=== PATIENT | male | born 1955 | race Caucasian/White ===

== ENCOUNTER 2020-04-17 12:48 | Outpatient (CLI) | payer MEDICARE, OTHER, SELFPAY ==
--- NOTE | ~2020-04-17 | MR_ITS ---
EXAMINATION: MR brain/brain stem wo con DATE: 04/17/2020 13:58 INDICATION: Dizziness and giddiness. TECHNIQUE: Magnetic resonance imaging (MRI) of the brain and brainstem was performed without intraven ous contrast. Sequences included sagittal and axial T1-weighted SE, axial diffusion-weighted FS SE, a xial T2*-weighted GRE, axial T2-weighted FLAIR, and axial T2-weighted FSE. Apparent diffusion coeffic ient (ADC) maps were created. COMPARISON: None. FINDINGS: There are no areas of restricted diffusion to suggest acute infarction. No intracranial hemorrhage or abnormal intracranial mass lesion. There are scattered areas of nonspecific increased T2-weighted si gnal intensity in the cerebral white matter, predominantly involving the deep and periventricular whi te matter which is within normal limits for age. There are no intraparenchymal signal abnormalities s een on the other pulse sequences. The ventricles are symmetric and normal in size. There are no abnor mal extra-axial fluid collections. Flow voids are seen in the cerebral arteries on the T2-weighted se quences consistent with their expected patency. Mild mucoperiosteal thickening throughout the right f rontal, bilateral ethmoid and maxillary sinuses. Visualized orbits and soft tissues are unremarkable. IMPRESSION: 1. Mild scattered nonspecific foci of white matter T2 hyperintensity which is within normal limits fo r age and likely sequela of chronic small vessel ischemic disease. Reviewed, dictated and finalized at location A. WAREHOUSE DEVELOPER IMPRESSION: 1. Mild scattered nonspecific foci of white matter T2 hyperintensity which is w ithin normal limits for age and likely sequela of chronic small vessel ischemic disease.
--- NOTE | 2020-04-17 13:25 | ECHO_ITS ---
Patient Info Name: Jamarcus Whitfield Age: 64 years : 1955 Gender: Male Ht: 75 in Wt: 245 lbs BSA: 2.45 m2 HR: 109 bpm BP: 142 / 89 mmHg Technical Quality: Good Exam Date: 04/17/2020 2:04 PM Exam Location: [facility] Patient Status: Outpatient Admit Date: 04/17/2020 Staff Ordering Physician: France Heredia NP Sealer Dry Cell: Radha Woody RDCS Attending Provider: France Heredia NP Referring Physician: Giovanna IVEY; Exam Type: CA echo doppler color flow Study Info Indications - LBBB UNSPECIFIED Complete two-dimensional, color flow and Doppler transthoracic echocardiogram is performed. Summary 1. Complete two-dimensional, color flow and Doppler transthoracic echocardiogram is performed. 2. Left ventricular chamber dimension is moderately enlarged. 3. Left ventricular systolic function is severely reduced, estimated at 30-35%. 4. There is mildly increased left ventricular wall thickness. 5. Left ventricular septal wall motion is abnormal with septal motion related to bundle branch block. 6. The left ventricular diastolic function is normal. 7. E/e' 9 is minimally elevated. 8. Global longitudinal strain is abnormal at -5.9%. 9. Left atrial chamber dimension is mildly enlarged. 10. There is mild mitral valve regurgitation. 11. There is trace tricuspid valve regurgitation. 12. No pulmonary hypertension, estimated pulmonary arterial systolic pressure is 22 mmHg. 13. The aortic root size at the sinus of Valsalva is borderline dilated at 4.1 cm. Left Ventricle E/e' 9 is minimally elevated. Global longitudinal strain is abnormal at -5.9%. Left ventricular chamber dimension is moderately enlarged. Left ventricular systolic function is severely reduced, estimated at 30-35%. There is mildly increased left ventricular wall thickness. Left ventricular septal wall motion is abnormal with septal motion related to bundle branch block. The left ventricular diastolic function is normal. Right Ventricle Right ventricular chamber dimension is normal. Right ventricular systolic function is normal. Left Atria Left atrial chamber dimension is mildly enlarged. Right Atria Right atrial chamber dimension is normal. Aortic Valve The aortic valve is trileaflet. There is no aortic valve stenosis. There is no aortic valve regurgitation. Pulmonic Valve There is no pulmonic regurgitation. Mitral Valve There is no mitral valve stenosis. There is mild mitral valve regurgitation. Tricuspid Valve There is trace tricuspid valve regurgitation. No pulmonary hypertension, estimated pulmonary arterial systolic pressure is 22 mmHg. Pericardium/Pleural There is no pericardial effusion. Inferior Vena Cava Normal inferior vena cava with >50% collapse upon inspiration consistent with normal right atrial pressure, 5 mmHg. Aorta The aortic root size at the sinus of Valsalva is borderline dilated at 4.1 cm. Left Ventricular Outflow Tract Name Value Normal LVOT 2D LVOT Diameter 2.4 cm LVOT Doppler LVOT Peak Gradient 4 mmHg LVOT Mean Gradient 2 mmHg
== END 2020-04-17 12:49 | disposition home or self-care (01) ==
PROVIDERS: PCP Internal Medicine; Visit Provider Nurse Practitioner
DX: I44.7 Left bundle-branch block, unspecified (principal); R42 Dizziness and giddiness
CPT/HCPCS: 70551; 93306

== ENCOUNTER 2020-04-23 11:23 | Outpatient (CLI) | payer MEDICARE, OTHER, SELFPAY ==
--- NOTE | ~2020-04-23 | XR_ITS ---
XR chest 2V DATE: 04/23/2020 11:52 INDICATION: Cough for one month TECHNIQUE: 2 views, PA and lateral projections COMPARISON: None FINDINGS: Normal heart size. No hilar or mediastinal enlargement. No pulmonary infiltrate or consolidation, pleural effusion or pulmonary vascular congestion or pneumo thorax is detected. IMPRESSION: No active cardiopulmonary disease Reviewed, dictated and finalized at location B. MACY OPERATIONS SPECIALIST
== END 2020-04-23 11:24 | disposition home or self-care (01) ==
PROVIDERS: PCP Internal Medicine; Visit Provider Nurse Practitioner
DX: R05 Cough (principal)
CPT/HCPCS: 71046

== ENCOUNTER 2020-04-29 01:26 | Outpatient (CLI) | payer MEDICARE, OTHER, SELFPAY ==
[2020-04-29 19:22] LABS: SARS-CoV-2 RNA PCR Negative
== END 2020-04-29 01:27 | disposition home or self-care (01) ==
LOC: ANHCOVIDDT 01:27
PROVIDERS: PCP Internal Medicine; Visit Provider Specialist
DX: Z01.812 Encounter for preprocedural laboratory examination (principal); Z20.822 Contact with and (suspected) exposure to COVID-19
CPT/HCPCS: C9803; U0003; U0005

== ENCOUNTER 2020-05-09 00:23 | Outpatient (CLI) | payer MEDICARE, OTHER, SELFPAY ==
[2020-05-09 17:38] LABS: SARS-CoV-2 RNA PCR Negative
== END 2020-05-09 00:24 | disposition home or self-care (01) ==
LOC: ANHCOVIDDT 00:23
PROVIDERS: PCP Internal Medicine; Visit Provider Specialist
DX: Z01.812 Encounter for preprocedural laboratory examination (principal); Z20.822 Contact with and (suspected) exposure to COVID-19
CPT/HCPCS: C9803; U0003; U0005

== ENCOUNTER 2020-05-12 01:29 | Day surgery (SDC) | payer MEDICARE, OTHER, SELFPAY ==
[2020-05-12] VITALS (8 sets, daily range): BP systolic 127–143; BP diastolic 84–90; PULSE 80–112; RESP 14–21; TEMP 36.5–37; O2SAT 92–98; BMI 30.3
[2020-05-12 07:41] LABS: Basophils Percent Auto 0.2 % (0.2-1.2); Hematocrit 46.2 % (42.0-52.0); Hemoglobin 15.9 g/dL (14.0-18.0); Immature Granulocyte Absolute 0.07 K/mm3 (0.00-0.031); Immature Granulocyte Percent A 0.5 % (0-0.5); Lymphocytes Absolute Auto 1.07 K/mm3 (0.9-3.2); Lymphocytes Percent Auto 7.1 % (18.3-44.2); Mean Corpuscular HGB Conc 34.4 g/dl (32-36); Mean Corpuscular Hemoglobin 29.7 pg (26-34); Mean Corpuscular Volume 86.2 fl (80-100); Mean Platelet Volume 9.8 fl (7.4-10.4); Monocytes Absolute Auto 0.1 K/mm3 (0.1-0.6); Monocytes Percent Auto 0.9 % (2.6-8.5); Neutrophils Absolute Auto 13.8 K/mm3 (1.3-6.7); Neutrophils Percent Auto 91.3 % (45.5-73.1); Platelet Count Result 377 k/mm3 (150-375); Red Blood Count 5.36 M/mm3 (4.6-6.20); Red Cell Distribution Width 12.8 % (11.5-14.5); White Blood Count 15.1 K/mm3 (4.5-10.0)
[2020-05-12 07:55] LABS: Anion Gap 12 mmol/L (8-16); Blood Urea Nitrogen 20 mg/dL (9-20); Calcium 9.7 mg/dL (8.4-10.2); Carbon Dioxide 23 mmol/L (22-30); Chloride 107 mmol/L (98-107); Estimated Glomerular Filt Rate > 60; Glucose 168 mg/dL (75-110); INR 0.9; Potassium 4.3 mmol/L (3.4-5.0); Prothrombin Time 13.2 Seconds (11.1-14.7); Sodium 142 mmol/L (137-145)
--- NOTE | 2020-05-12 08:43 | WPDMODSED ---
Moderate Sedation Note-Pt Data Patient Data Diagnosis: Left bundle-branch block left ventricular systolic dysfunction Present Complaint: this is a 64-year-old patient who has been noticing symptoms of exertional intolerance for approximately 1-2 years. Evaluation has demonstrated evidence of a left bundle-branch block as well as a reduced ejection fraction noted on echo. For this reason angiography has been recommended. He is not reporting anginal-type chest pain. the patient is allergic to contrast and has been pre treated with steroids and Benadryl. Procedure to be performed/Plan: left heart catheterization Allergies Allergy/AdvReac Type Severity Reaction Status Date / Time meperidine Allergy Severe Anaphylactic Verified 05/12/20 07:35 Shock Sulfa (Sulfonamide Allergy Severe Anaphylactic Verified 05/12/20 07:37 Antibiotics) Shock sulfamethizole Allergy Severe Anaphylactic Verified 05/12/20 07:37 Shock sulfite Allergy Severe Anaphylactic Verified 05/12/20 07:37 Shock trimethoprim Allergy Severe Abdominal Verified 05/12/20 07:37 Pain Home Medications Medication Instructions Recorded Confirmed Type cetirizine 10 mg tablet 5 mg PO DAILY PRN 03/14/20 05/12/20 History multivitamin 1 tablet PO DAILY 03/14/20 05/12/20 History nabumetone 500 mg tablet 500 mg PO BID PRN 03/14/20 05/12/20 History lisinopril 40 mg tablet 40 mg PO DAILY #90 tablet 03/27/20 05/12/20 Rx meclizine 12.5 mg tablet 12.5 mg PO TID PRN #30 tablet 03/27/20 05/12/20 Rx diazepam 5 mg tablet 5 mg PO BID PRN #20 tablet 03/28/20 05/12/20 Rx prochlorperazine maleate 5 mg 5 mg PO Q8H PRN #20 tablet 03/28/20 05/12/20 Rx tablet amlodipine 10 mg tablet 10 mg PO DAILY #90 tablet 04/02/20 05/12/20 Rx finasteride 5 mg tablet 5 mg PO DAILY #90 tablet 04/02/20 05/12/20 Rx aspirin 81 mg tablet,delayed 81 mg PO DAILY 04/24/20 05/12/20 History release carvedilol 3.125 mg tablet 3.125 mg PO Q12H #60 tablet 04/24/20 05/12/20 Rx rosuvastatin 20 mg tablet 20 mg PO DAILY #30 tablet 04/25/20 05/12/20 Rx Current Medications: Active Medications Sodium Chloride (Normal Saline Iv) 500 mls @ 100 mls/hr IV CONT .Q5H [facility] Sedation/Anesthesia: No previous sedation/anesthesia problems (including family history). 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 Torn meniscus 1998 Family History Family History (Updated 03/12/20 @ 16:39 by Ivonne Lira [facility]) Father Family history of lymphoma Diabetes mellitus Hypertension Family history of coronary artery disease Gout Mother Hypertension Family history of coronary artery disease Breast cancer Arthritis Social History Social History Smoking status: Former smoker Smoking end date: 04/18/94 Alcohol intake: never Mod Sed Physical Exam Physical Exam Pre Procedural Exam: Normal: Appearance, Neck, Throat, Airway, Lungs, Heart Size, Heart Rate, Heart Rhythm, Neuro Exam and Extremities Hours since solid foods: 12 Hours since liquid intake: 12 Internal Medicine - PN: Obj Da Vital Signs Vital Signs: Vital Signs - 24 hr 05/12/20 07:48 Temperature 36.5 C Pulse Rate 108 H Respiratory Rate 18 Blood Pressure 141/84 H Pulse Oximetry 98 Meds/Results Medications: Active Medications Generic Name Dose Route Start Last Admin Trade Name Freq PRN Reason Stop Dose Admin Sodium Chloride 500 mls @ 100 mls/hr 05/12/20 07:20 Normal Saline Iv IV CONT .Q5H [facility] Labs CBC & Chem 7: 05/12/20 07:32 05/12/20 07:32 Labs: Laboratory Results - last 24 hr 05/12/20 05/12/20 05/12/20 07:32 07:32 07:32 WBC 15.1 H RBC 5.36 Hgb 15.9 Hct 46.2 MCV 86.2 MCH 29.7 MCHC 34.4 RDW 12.8 Plt Count 377 H MPV 9.8 Immature
--- NOTE | 2020-05-12 09:21 | P.PCNCC_ITS ---
Cardiac Cath Procedure Note Date of procedure:: 05/12/20 Performing physician:: Camilo Ha MD Indication:: Left bundle-branch block left ventricular systolic dysfunction Brief clinical history:: 64-year-old man reporting symptoms of exertional intolerance occasional exertional chest pain. Was found to have a left bundle branch block and LV systolic dysfunction by echo. Procedure Procedure performed:: Left heart catheterization Angio-Seal to right femoral artery Sedation/Medication given:: fentanyl 50 mg Versed 2 mg case start time 9:01 a.m. case end time 9:19 a.m. sedation provided by Lizabeth Cr RN, trained observer Access site:: right femoral artery Estimated blood loss:: 10-15 cc Procedure note:: patient was brought to the cardiac catheterization lab in the postabsorptive state the right femoral triangle was prepared and draped in the usual fashion. Anesthesia was provided with 1% lidocaine infiltrated locally. Using modified Seldinger technique a 5 [place] sheath was placed into the femoral artery after this left heart catheterization took place I used a 5 [place] angled pigtail catheter to document left-sided hemodynamics and injected LV g in the ÁLVAREZ projection. After this I used a standard 5 [place] FL4 catheter to inject the left coronary artery and a 5 [place] JR4 catheter to engage inject the right coronary artery. The cine angiograms were then reviewed and the case was terminated. An angiogram was then of the femoral artery through the sheath after which an Angio-Seal device was deployed with a good hemostatic result. Procedure was well tolerated he left the cardiac catheterization lab with no evidence of a groin hematoma. Findings:: Hemodynamics: Central aortic pressure is 126/70 left ventricle 126/0 end-diastolic of 11 there is no systolic gradient on pullback across the aortic valve. Left ventricle: The LV is mildly enlarged the infero posterior segments are markedly hypodynamic the remainder of the LV is moderately hypodynamic the global ejection fraction is visually estimated to be about 30-35%. Opacification of the left ventricle during this LV g was suboptimal. The left main coronary artery is short but nicely patent the left anterior descending is a moderate caliber artery appears to have about 70% stenosis at its ostium. Then there is a 90% stenosis in the midportion of the LAD. There was SAMIR 3 flow in the vessel. The circumflex is a moderate caliber artery giving rise to the marginal branc hes after the largest marginal branch the trunk of the circumflex has about 70- 80% stenosis prior to the largest posterior lateral branch. There is distal collateral filling from the distal circumflex to the RCA. Right coronary artery is dominant to the posterior circulation and has mild disease proximally is 100% occluded in the 2nd portion with antegrade bridging collaterals providing slow filling distal to this. The RV acute marginal branches without significant disease prior to the occlusion. Conclusion:: 1. Three-vessel coronary artery disease with 100% occlusion of the mid RCA which receives both right to right and [id number] collateral filling. Moderate stenosis of the LAD ostium and high-grade stenosis of the mid LAD. Moderate stenosis of the circumflex trunk after the major OM branch. 2. Left ventricular systolic dysfunction ejection fraction visually estimated to be 30-35% similar to what was noted echocardiographically. 3. Successful Angio-Seal to right femoral artery Camilo Ha MD [facility]
--- NOTE | 2020-05-12 13:28 | SUR.PHASEII ---
Addendum entered by Elodia Ware RN 05/12/20 13:32: Patient escorted to vehicle by staff at discharge, where he was picked up by his friend. Original Note: Patient discharged following LHC. Education provided on post-care including reportable s/s, angiogseal,groin management and wound care, moderate sedation. Patient states he has a follow-up appointment already scheduled with Dr. Cortes for next week at time of discharge. At discharge, dressing C/D/I, patient denies pain, palpable distal pulse, VSS. Dr. Ha notified of patient's elevated HR at time of DC- no further orders obtained, patient asymptomatic. PIV removed. Patient verbalizes understanding of information provided.
== END 2020-05-12 13:33 | disposition home or self-care (01) ==
PROVIDERS: PCP Internal Medicine; Visit Provider Specialist
PROC: 4A023N7 Measurement of Cardiac Sampling and Pressure, Left Heart, Percutaneous Approach (ICD-10-PCS; CPT 93452; principal; 2020-05-12 08:30)
DX: I25.10 Atherosclerotic heart disease of native coronary artery without angina pectoris (principal); R93.1 Abnormal findings on diagnostic imaging of heart and coronary circulation; I44.7 Left bundle-branch block, unspecified; R07.89 Other chest pain; E78.5 Hyperlipidemia, unspecified; I10 Essential (primary) hypertension; M10.9 Gout, unspecified; N40.0 Benign prostatic hyperplasia without lower urinary tract symptoms; Z87.891 Personal history of nicotine dependence
CPT/HCPCS: 36415; 80048; 85025; 85610; 93458; C1760; C1887; C1894; G0269; J1644; J2250; J3010; J7040

== ENCOUNTER 2020-09-24 11:02 | Outpatient (CLI) | payer MEDICARE, OTHER, SELFPAY ==
--- NOTE | ~2020-09-24 | XR_ITS ---
XR lumbar spine min 4V 09/24/2020 11:31 Indication: Low back pain Procedure: 5 views lumbar spine Comparison: No prior studies for comparison. Findings: There is mild levocurvature. Vertebral body heights are maintained. There is disc narrowing at L2-3 through L5-S1. There is mild facet hypertrophy at L4-5 and L5-S1. There is atherosclerosis o f the aorta. Pedicles intact. Sacral foramen are symmetric. Impression: 1: Mild-moderate lumbar spondylosis. Reviewed, dictated and finalized at location B. Impression: 1: Mild-moderate lumbar spondylosis.
== END 2020-09-24 11:03 | disposition home or self-care (01) ==
PROVIDERS: PCP Internal Medicine; Visit Provider Nurse Practitioner
DX: M47.896 Other spondylosis, lumbar region (principal)
CPT/HCPCS: 72110

== ENCOUNTER 2020-10-21 12:26 | Outpatient (CLI) | payer MEDICARE, OTHER, SELFPAY ==
--- NOTE | 2020-10-21 12:48 | ECHO_ITS ---
Patient Info Name: Jamarcus Whitfield Age: 65 years : 1955 Gender: Male Ht: 75 in Wt: 219 lbs BSA: 2.31 m2 HR: 94 bpm BP: 178 / 106 mmHg Exam Date: 10/21/2020 1:08 PM Exam Location: [facility] Patient Status: Outpatient Admit Date: 10/21/2020 Staff Ordering Physician: Juan A Cortes DO Clerical Warehouseman: Glenny Cali RDCS Attending Provider: Juan A Cortes DO Exam Type: CA echo doppler color flow Study Info Indications I50.20 - Unspecified systolic (congestive) heart failure Complete two-dimensional, color flow and Doppler transthoracic echocardiogram is performed. Summary 1. Complete two-dimensional, color flow and Doppler transthoracic echocardiogram is performed. 2. Left ventricular chamber dimension is severely enlarged. 3. Left ventricular systolic function is severely reduced, estimated at 20-25%. 4. Left ventricular septal wall motion is abnormal with septal motion related to bundle branch block. 5. The left ventricular diastolic function is grade I diastolic dysfunction. 6. E/e' 7 is not elevated. 7. Left atrial chamber dimension is mildly enlarged. 8. Right atrial chamber dimension is mildly enlarged. 9. There is mild aortic valve regurgitation. 10. There is mild mitral valve regurgitation. 11. No pulmonary hypertension, estimated pulmonary arterial systolic pressure is 36 mmHg. 12. The aortic root size at the sinus of Valsalva is moderately dilated at 4.4 cm. Left Ventricle E/e' 7 is not elevated. Left ventricular chamber dimension is severely enlarged. Left ventricular systolic function is severely reduced, estimated at 20-25%. Left ventricular septal wall motion is abnormal with septal motion related to bundle branch block. The left ventricular diastolic function is grade I diastolic dysfunction. Right Ventricle Right ventricular chamber dimension is normal. Right ventricular systolic function is normal. Left Atria Left atrial chamber dimension is mildly enlarged. Right Atria Right atrial chamber dimension is mildly enlarged. Aortic Valve The aortic valve is trileaflet. There is no aortic valve stenosis. There is mild aortic valve regurgitation. Pulmonic Valve There is no pulmonic regurgitation. Mitral Valve There is no mitral valve stenosis. There is mild mitral valve regurgitation. Tricuspid Valve There is no tricuspid valve regurgitation. No pulmonary hypertension, estimated pulmonary arterial systolic pressure is 36 mmHg. Pericardium/Pleural There is no pericardial effusion. Inferior Vena Cava Normal inferior vena cava with >50% collapse upon inspiration consistent with normal right atrial pressure, 5 mmHg. Aorta The aortic root size at the sinus of Valsalva is moderately dilated at 4.4 cm. Left Ventricular Outflow Tract Name Value Normal LVOT 2D LVOT Diameter 2.3 cm LVOT Doppler LVOT Peak Gradient 3 mmHg LVOT Mean Gradient 1 mmHg LVOT VTI 15 cm LVOT VTI/AV VTI Ratio 0.6 LVOT Stroke Volume 62 ml
== END 2020-10-21 12:27 | disposition home or self-care (01) ==
PROVIDERS: PCP Internal Medicine; Visit Provider Internal Medicine Cardiovascular Disease
DX: I50.20 Unspecified systolic (congestive) heart failure (principal); I34.0 Nonrheumatic mitral (valve) insufficiency; I35.1 Nonrheumatic aortic (valve) insufficiency
CPT/HCPCS: 93306

== ENCOUNTER → 2021-01-17 00:39 | Outpatient (CLI) | payer MEDICARE, OTHER, SELFPAY ==
[2021-01-17 19:34] LABS: SARS-CoV-2 RNA PCR Negative
== END ==
PROVIDERS: PCP Internal Medicine; Visit Provider Clinical Nurse Specialist
DX: J32.9 Chronic sinusitis, unspecified (principal); Z20.822 Contact with and (suspected) exposure to COVID-19
CPT/HCPCS: C9803; U0003; U0005

== ENCOUNTER → 2021-05-12 02:59 | Outpatient (CLI) | payer MEDICARE, SELFPAY ==
[2021-05-12 15:54] LABS: Influenza A QL RT-PCR Negative (Negative); Influenza B QL RT-PCR Negative (Negative); SARS-CoV-2 RNA PCR Negative
== END ==
PROVIDERS: PCP Internal Medicine; Visit Provider Nurse Practitioner
DX: R05.9 Cough, unspecified (principal); Z20.822 Contact with and (suspected) exposure to COVID-19
CPT/HCPCS: 87502; C9803; U0003; U0005

== ENCOUNTER → 2022-06-09 14:01 | Outpatient (CLI) | payer MEDICARE, SELFPAY ==
--- NOTE | ~2022-06-09 | XR_ITS ---
EXAM: XR shoulder RT min 2V DATE: 06/09/2022 14:15 HISTORY: no injury pain raising arm for 3 weeks . COMPARISON: None available. FINDINGS: Intact sternotomy wires. Mediastinal surgical clips. Normal mineralization. No fracture or dislocation. No lytic or blastic lesion. Moderate AC joint hypertrophy. Mild degenerative change at t he glenohumeral joint. No erosion or periosteal change. Soft tissues within normal limits. IMPRESSION: Polyarticular osteoarthritis of the right shoulder. Reviewed, dictated and finalized at location K. RER VINEYARD
== END ==
PROVIDERS: PCP Internal Medicine; Visit Provider Nurse Practitioner
DX: M19.011 Primary osteoarthritis, right shoulder (principal)
CPT/HCPCS: 73030

== ENCOUNTER 2022-11-04 09:21 | Outpatient (CLI) | payer MEDICARE, SELFPAY ==
[2022-11-04 13:25] LABS: Basophils Absolute Auto 0.1 K/mm3 (0.0-0.1); Basophils Percent Auto 0.8 % (0.2-1.2); Eosinophils Absolute Auto 0.3 K/mm3 (0-0.3); Eosinophils Percent Auto 4.1 % (0-4.4); Hematocrit 46.9 % (42.0-52.0); Hemoglobin 15.1 g/dL (14.0-18.0); Immature Granulocyte Absolute 0.02 K/mm3 (0.00-0.031); Immature Granulocyte Percent A 0.3 % (0-0.5); Lymphocytes Absolute Auto 1.91 K/mm3 (0.9-3.2); Lymphocytes Percent Auto 24.5 % (18.3-44.2); Mean Corpuscular HGB Conc 32.2 g/dl (32-36); Mean Corpuscular Hemoglobin 29.7 pg (26-34); Mean Corpuscular Volume 92.1 fl (80-100); Mean Platelet Volume 10.7 fl (7.4-10.4); Monocytes Absolute Auto 0.7 K/mm3 (0.1-0.6); Monocytes Percent Auto 9.1 % (2.6-8.5); Neutrophils Absolute Auto 4.8 K/mm3 (1.3-6.7); Neutrophils Percent Auto 61.2 % (45.5-73.1); Platelet Count Result 282 k/mm3 (150-375); Red Blood Count 5.09 M/mm3 (4.6-6.20); Red Cell Distribution Width 12.6 % (11.5-14.5); White Blood Count 7.8 K/mm3 (4.5-10.0)
[2022-11-04 14:04] LABS: Alanine Aminotransferase 33 U/L (6-50); Albumin Level 4.4 g/dL (3.5-5.1); Alkaline Phosphatase 78 U/L (38-126); Anion Gap 7 mmol/L (8-16); Aspartate Amino Transferase 38 U/L (17-59); Bilirubin,Total 1.1 mg/dL (0.2-1.3); Blood Urea Nitrogen 21 mg/dL (9-20); Calcium 9.1 mg/dL (8.4-10.2); Carbon Dioxide 28 mmol/L (22-30); Chloride 107 mmol/L (98-107); Cholesterol 141 mg/dL (0-200); Estimated Glomerular Filt Rate > 60; Glucose 98 mg/dL (65-110); HDL Direct 32 mg/dL; Potassium 4.7 mmol/L (3.4-5.0); Sodium 142 mmol/L (137-145); Triglycerides 121 mg/dL (<150)
[2022-11-04 14:15] LABS: LDL Cholesterol Direct 98 mg/dL
[2022-11-04 14:29] LABS: Prostate Specific Antigen 1.7 ng/mL (< OR = 4.0)
[2022-11-05 00:37] LABS: Hemoglobin A1C 5.5 % (<5.7)
== END 2022-11-04 09:22 | disposition home or self-care (01) ==
LOC: ANHGOSHLAB 09:23
PROVIDERS: PCP Internal Medicine; Visit Provider Nurse Practitioner
DX: R73.9 Hyperglycemia, unspecified (principal); I25.10 Atherosclerotic heart disease of native coronary artery without angina pectoris; Z12.5 Encounter for screening for malignant neoplasm of prostate
CPT/HCPCS: 36415; 80053; 80061; 83036; 84153; 85025; G0103

== ENCOUNTER 2023-02-20 10:33 | Emergency (ER) | payer MEDICARE, SELFPAY ==
--- NOTE | ~2023-02-20 | CT_ITS ---
EXAMINATION: CT abdomen pelvis wo con DATE: 02/20/2023 11:34 INDICATION: Left flank pain TECHNIQUE: Computed tomography (CT) of the abdomen and pelvis was performed without intravenous contr ast. The dose-length product (DLP) was 1186.30 mGy-cm. Automated exposure control and iterative recon struction technique were employed. COMPARISON: 10/08/2016 FINDINGS: Minimal dependent atelectasis is present in the lung bases. The heart size is normal. There are changes of coronary artery bypass grafting. The liver, spleen, pancreas, gallbladder, and adrena l glands are normal. There is a 3.2 cm soft tissue density mass of the right kidney. There is a 3.8 c m cyst of the right kidney. There is a 4 mm hyperdense lesion of the left kidney lower pole. There is calcified atherosclerosis of the aorta and many of the other arteries. The appendix is normal. There is a right inguinal hernia containing fat. There is moderate lumbar spondylosis. IMPRESSION: 1. No CT correlate for the patient's symptoms. 2. Indeterminate right kidney mass which may reflect cyst or solid neoplasm. Follow-up with nonemerge nt CT or MRI without and with contrast is recommended. Reviewed, dictated and finalized at location F. H PLANT OPERATOR IMPRESSION: 1. No CT correlate for the patient's symptoms. 2. Indeterminate right kidney mass which may reflect cyst or solid neoplasm. Fo llow-up with nonemergent CT or MRI without and with contrast is recommended.
[2023-02-20 10:51] VITALS: BP 183/98; PULSE 87; RESP 16; TEMP 36.3; O2SAT 99
[2023-02-20 11:01] VITALS: BP 155/93; PULSE 70; RESP 16; O2SAT 99
--- NOTE | 2023-02-20 11:11 | ED.MALEGU ---
HPI - Male Genitourinary General Chief complaint: Urogenital-Male Stated complaint: blood in urine Time Seen by Provider: 02/20/23 10:40 Source: patient Mode of arrival: ambulatory Limitations: no limitations History of Present Illness HPI Narrative: Patient is a 67-year-old male who presents the ED with report of hematuria. Patient reports he woke up in the middle of the night to use the restroom and noticed pain across his lower back. He urinated and noticed his urine to look blood-tinged. He then had several more episodes of hematuria throughout the night. Endorses dysuria. He states the pain across his lower back is less severe now than it was throughout the night. Denies abdominal pain, nausea, vomiting, fevers. Patient has had a similar episode of hematuria in the past which was attributed to a UTI. He notes history of prostate issues, but states he has not seen a urologist in over a year. Related Data Home Medications Medication Instructions Recorded Confirmed multivitamin 1 tablet PO DAILY 03/14/20 11/04/22 aspirin 81 mg tablet,delayed 81 mg PO DAILY 04/24/20 11/04/22 release (Adult Low Dose Aspirin) eplerenone 25 mg tablet 25 mg PO DAILY 11/04/21 11/04/22 sacubitril 97 mg-valsartan 103 mg See Rx Instructions .Route .COMPLEX 12/28/21 11/04/22 tablet (Entresto) dapagliflozin propanediol 5 mg 10 mg PO DAILY 11/04/22 11/04/22 tablet (Farxiga) Allergies Allergy/AdvReac Type Severity Reaction Status Date / Time meperidine Allergy Severe Anaphylactic Verified 11/04/22 08:28 Shock Sulfa (Sulfonamide Allergy Severe Anaphylactic Verified 11/04/22 08:28 Antibiotics) Shock sulfamethizole Allergy Severe Anaphylactic Verified 11/04/22 08:28 Shock sulfite Allergy Severe Anaphylactic Verified 11/04/22 08:28 Shock tamsulosin [From Flomax] Allergy Severe Anaphylaxis Verified 11/04/22 08:28 trimethoprim Allergy Severe Abdominal Verified 11/04/22 08:28 Pain Iodinated Contrast Media Allergy Unknown Verified 11/04/22 08:28 Review of Systems Review of Systems: CONSTITUTIONAL: Denies fever, chills, or sweats. CARDIOVASCULAR: Denies chest pain. RESPIRATORY: Denies dyspnea. GASTROINTESTINAL: Denies abdominal pain, nausea, vomiting. GENITOURINARY: See HPI. SKIN: Denies rash or itching. MUSCULOSKELETAL: See HPI. NEUROLOGIC: Denies headache, numbness, or weakness. 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 Protruding sternal wires (~2021) removed in July Torn meniscus 1997 Family History Family History Father Family history of lymphoma Diabetes mellitus Hypertension Family history of coronary artery disease Gout Mother Hypertension Family history of coronary artery disease Breast cancer Arthritis Social History Social History Social History: caffeine-none Smoking status: Never smoker Smoking end date: 04/18/94 Alcohol intake: never Lack of Transportation: No Lack of Food: Never True Current Housing: I Have Housing Concerned About Future Housing: No Difficulty Paying Gas/Electric Bills: No Difficulty Paying for Meds: No Currently Unemployed: No Education: Bachelor's Degree Difficulty w/ Childcare or Family Care: No Exam Narrative: GENERAL: Well appearing, well-nourished, non-toxic, in no acute distress. HEAD: Normocephalic, atraumatic. NECK: Supple. No adenopathy, no masses. RESPIRATORY: Airway patent, respirations nonlabored. Clear to auscultation bilaterally, no rales, rhonchi, wheezing. CARDIOVASCULAR: Regular rate and rhythm without murmurs, rubs,
[2023-02-20 11:13] LABS: Basophils Absolute Auto 0.1 K/mm3 (0.0-0.1); Basophils Percent Auto 0.5 % (0.2-1.2); Eosinophils Absolute Auto 0.2 K/mm3 (0-0.3); Eosinophils Percent Auto 2.2 % (0-4.4); Hematocrit 47.5 % (42.0-52.0); Hemoglobin 15.4 g/dL (14.0-18.0); Immature Granulocyte Absolute 0.05 K/mm3 (0.00-0.031); Immature Granulocyte Percent A 0.5 % (0-0.5); Lymphocytes Absolute Auto 1.36 K/mm3 (0.9-3.2); Lymphocytes Percent Auto 12.7 % (18.3-44.2); Mean Corpuscular HGB Conc 32.4 g/dl (32-36); Mean Corpuscular Hemoglobin 29.6 pg (26-34); Mean Corpuscular Volume 91.2 fl (80-100); Monocytes Absolute Auto 0.8 K/mm3 (0.1-0.6); Monocytes Percent Auto 7.8 % (2.6-8.5); Neutrophils Absolute Auto 8.2 K/mm3 (1.3-6.7); Neutrophils Percent Auto 76.3 % (45.5-73.1); Platelet Count Result 261 k/mm3 (150-375); Red Blood Count 5.21 M/mm3 (4.6-6.20); White Blood Count 10.7 K/mm3 (4.5-10.0)
[2023-02-20 11:19] LABS: Bacteria Urine Rare /hpf; Need Manual Microscopic Reviewed; Non Pathogenic Casts 0-2; Squamous Epithelial Cell Urine None seen /hpf (Few); WBC Urine >100 /hpf
[2023-02-20 11:20] LABS: Appearance Urine Turbid (Clear); Color Urine Red (Yellow); RBC Urine >100 /hpf (0-2)
[2023-02-20 11:22] LABS: Add Urine Microscopic? YES; Alanine Aminotransferase 58 U/L (6-50); Albumin Level 4.6 g/dL (3.5-5.1); Alkaline Phosphatase 89 U/L (38-126); Anion Gap 5 mmol/L (8-16); Aspartate Amino Transferase 41 U/L (17-59); Bilirubin,Total 1.3 mg/dL (0.2-1.3); Blood Urea Nitrogen 16 mg/dL (9-20); Calcium 9.5 mg/dL (8.4-10.2); Carbon Dioxide 29 mmol/L (22-30); Chloride 104 mmol/L (98-107); Estimated CRCL calculation 101 ml/min; Estimated Glomerular Filt Rate > 60; Glucose 98 mg/dL (65-110); Potassium 4.5 mmol/L (3.4-5.0); Sodium 138 mmol/L (137-145)
[2023-02-20] MEDS: SODIUM CHLORIDE 0.9% IV 1,000 ML 999 ML IV CONT (12:02)
[2023-02-20 12:09] VITALS: BP 158/76; PULSE 70; RESP 16; O2SAT 98
[2023-02-20 12:31] VITALS: BP 156/90; PULSE 72; RESP 16; TEMP 36.7; O2SAT 99
== END 2023-02-20 12:58 | disposition home or self-care (01) ==
PROVIDERS: Student in an Organized Health Care Education/Training Program; Emergency Provider Physician Assistant; PCP Internal Medicine
DX: N39.0 Urinary tract infection, site not specified (principal); N28.89 Other specified disorders of kidney and ureter; E78.5 Hyperlipidemia, unspecified; I10 Essential (primary) hypertension
CPT/HCPCS: 36415; 74176; 80053; 81001; 85025; 87086; 96365; 99284; J0696; J7030

== ENCOUNTER 2023-03-03 17:49 | Emergency (ER) | payer MEDICARE, SELFPAY ==
[2023-03-03 17:58] VITALS: BP 179/98; PULSE 83; RESP 16; TEMP 36.4; O2SAT 98
--- NOTE | 2023-03-03 18:04 | PC.NURSE ---
pt states since bp is lower than it was at home he is going to leave. advised to keep a blood pressure log for his dr and to follow up regarding his kidney lesions. return prompts reviewed
== END 2023-03-03 19:29 | disposition left against medical advice (07) ==
PROVIDERS: PCP Internal Medicine
DX: R51.9 Headache, unspecified (principal)
CPT/HCPCS: 99199

== ENCOUNTER → 2023-03-16 09:38 | Outpatient (CLI) | payer MEDICARE, SELFPAY ==
--- NOTE | ~2023-03-16 | CT_ITS ---
EXAMINATION: CT abdomen pelvis w con DATE: 03/16/2023 10:20 INDICATION: Right renal mass TECHNIQUE: Computed tomography (CT) of the abdomen and pelvis was performed with 100 cc Omnipaque 350 intravenous contrast. The dose-length product was 1063.22 mGy-cm. Automated exposure control and ite rative reconstruction technique were employed. COMPARISON: CT dated 02/20/2023. FINDINGS: There is dependent atelectasis. Heart size normal. No significant pleural or pericardial ef fusion. Gallbladder is present. The liver, spleen, pancreas, adrenal glands are unremarkable. There a re small subcentimeter hypodensities of the left kidney, too small to characterize, although statisti miguel angel likely benign. There is an intermediate density 3.5 cm left renal mass measuring 63 Hounsfield units. No precontrast examination currently available to assess for enhancement. There is atheroscler osis of the aorta without aneurysm. No lymphadenopathy. No bowel obstruction. Normal appendix. Coloni c diverticulosis without evidence for diverticulitis. No free air or free fluid. Moderate lumbar spon dylosis. IMPRESSION: 1. Intermediate density right renal mass measuring 3.5 cm. No current precontrast sequence available to assess for enhancement. Differential diagnosis includes complicated hemorrhagic/proteinaceous cyst and low-grade neoplasm. Recommend correlation with MRI without and with contrast. Reviewed, dictated and finalized at location B. TEND ENGINEER IMPRESSION: 1. Intermediate density right renal mass measuring 3.5 cm. No current precontra st sequence available to assess for enhancement. Differential diagnosis include s complicated hemorrhagic/proteinaceous cyst and low-grade neoplasm. Recommend correlation with MRI without and with contrast.
[2023-03-16 10:07] LABS: Estimated Glomerular Filt Rate > 60
== END ==
PROVIDERS: PCP Nurse Practitioner; Visit Provider Nurse Practitioner
DX: N28.89 Other specified disorders of kidney and ureter (principal)
CPT/HCPCS: 74177; Q9967

== ENCOUNTER 2023-03-20 09:08 | Emergency (ER) | payer MEDICARE, SELFPAY ==
[2023-03-20 09:42] VITALS: BP 188/106; PULSE 80; RESP 22; TEMP 36.6; O2SAT 100
[2023-03-20 10:24] LABS: Appearance Urine Turbid (Clear); Color Urine Red (Yellow)
[2023-03-20 10:25] LABS: Add Urine Microscopic? YES
[2023-03-20 10:30] LABS: RBC Urine >100 /hpf (0-2); WBC Urine >100 /hpf (0-3)
--- NOTE | 2023-03-20 11:55 | ED.MALEGU ---
HPI - Male Genitourinary General Chief complaint: Urogenital-Male Stated complaint: blood in urine Time Seen by Provider: 03/20/23 11:39 Source: patient Mode of arrival: ambulatory Limitations: no limitations History of Present Illness HPI Narrative: Jamarcus is a 67-year-old male patient presenting to the ER today with blood in his urine. He reports that he started noticing blood in his urine this morning. Was seen a month ago and had a CT scan done of his abdomen and pelvis without contrast and was diagnosed with out possible hemorrhagic cyst or neoplasm to the right kidney. He denies any flank pain today. Denies any fever or chills. Is able to urinate without difficulty but no this is a lot of blood and blood clots coming from the urine. He has a follow-up with urologist on April 13. States the plan is to have a MRI done at that time Related Data Home Medications Medication Instructions Recorded Confirmed multivitamin 1 tablet PO DAILY 03/14/20 03/01/23 aspirin 81 mg tablet,delayed 81 mg PO DAILY 04/24/20 03/01/23 release (Adult Low Dose Aspirin) eplerenone 25 mg tablet 25 mg PO DAILY 11/04/21 03/01/23 dapagliflozin propanediol 5 mg 10 mg PO DAILY 11/04/22 03/01/23 tablet (Farxiga) lovastatin 40 mg tablet 50 mg PO DAILY 03/01/23 03/01/23 dapagliflozin propanediol 10 mg mg 03/20/23 03/20/23 tablet (Farxiga) losartan 50 mg tablet mg 03/20/23 Allergies Allergy/AdvReac Type Severity Reaction Status Date / Time meperidine Allergy Severe Anaphylactic Verified 03/20/23 12:40 Shock Sulfa (Sulfonamide Allergy Severe Anaphylactic Verified 03/20/23 12:40 Antibiotics) Shock sulfamethizole Allergy Severe Anaphylactic Verified 03/20/23 12:40 Shock sulfite Allergy Severe Anaphylactic Verified 03/20/23 12:40 Shock tamsulosin [From Flomax] Allergy Severe Anaphylaxis Verified 03/20/23 12:40 trimethoprim Allergy Severe Abdominal Verified 03/20/23 12:40 Pain Iodinated Contrast Media Allergy Unknown Verified 03/20/23 12:40 Review of Systems Review of Systems: Pertinent positives per HPI. Patient denies any fever, chills, rash, headache, visual changes, dizziness, cough, runny nose, sore throat, shortness of breath, chest pain, palpitations, nausea, vomiting, diarrhea, constipation, or any abdominal pain. 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 Protruding sternal wires (~2021) removed in July Torn meniscus 1997 Family History Family History Father Family history of lymphoma Diabetes mellitus Hypertension Family history of coronary artery disease Gout Mother Hypertension Family history of coronary artery disease Breast cancer Arthritis Social History Social History Social History: caffeine-none Smoking status: Never smoker Smoking end date: 04/18/94 Alcohol intake: never Lack of Transportation: No Lack of Food: Never True Current Housing: I Have Housing Concerned About Future Housing: No Difficulty Paying Gas/Electric Bills: No Difficulty Paying for Meds: No Currently Unemployed: No Education: Bachelor's Degree Difficulty w/ Childcare or Family Care: No Comments At the time of my signature, I reviewed and agree with the nursing past medical, surgical, social, and family history. There is no relevant family history pertinent to the patient complaint. Exam Narrative: General: Well-developed, well nourished, in no apparent distress. Head: Normocephalic, atraumatic. Cardio: Regular rate and rhythm, s1 and s2 normal, no murmur appreciated. Resp: Clear to auscultation bilaterally, no rhonchi, rales, wheezing or rubs. Abdomen: Soft, plia
[2023-03-20 12:38] VITALS: BP 163/96; PULSE 88; RESP 16; O2SAT 98
[2023-03-20 13:04] LABS: Basophils Percent Auto 0.3 % (0.2-1.2); Eosinophils Absolute Auto 0.3 K/mm3 (0-0.3); Eosinophils Percent Auto 2.1 % (0-4.4); Hematocrit 49.6 % (42.0-52.0); Hemoglobin 16.2 g/dL (14.0-18.0); Immature Granulocyte Absolute 0.07 K/mm3 (0.00-0.031); Immature Granulocyte Percent A 0.6 % (0-0.5); Lymphocytes Absolute Auto 1.78 K/mm3 (0.9-3.2); Lymphocytes Percent Auto 15.2 % (18.3-44.2); Mean Corpuscular HGB Conc 32.7 g/dl (32-36); Mean Corpuscular Hemoglobin 29.2 pg (26-34); Mean Corpuscular Volume 89.5 fl (80-100); Monocytes Absolute Auto 0.7 K/mm3 (0.1-0.6); Monocytes Percent Auto 6.2 % (2.6-8.5); Neutrophils Absolute Auto 8.8 K/mm3 (1.3-6.7); Neutrophils Percent Auto 75.6 % (45.5-73.1); Platelet Count Result 286 k/mm3 (150-375); Red Blood Count 5.54 M/mm3 (4.6-6.20); Red Cell Distribution Width 13.2 % (11.5-14.5); White Blood Count 11.7 K/mm3 (4.5-10.0)
[2023-03-20 13:14] LABS: Alanine Aminotransferase 45 U/L (6-50); Albumin Level 4.8 g/dL (3.5-5.1); Alkaline Phosphatase 89 U/L (38-126); Anion Gap 11 mmol/L (8-16); Aspartate Amino Transferase 38 U/L (17-59); Bilirubin,Total 1.5 mg/dL (0.2-1.3); Blood Urea Nitrogen 17 mg/dL (9-20); Calcium 9.9 mg/dL (8.4-10.2); Carbon Dioxide 25 mmol/L (22-30); Chloride 103 mmol/L (98-107); Estimated Glomerular Filt Rate > 60; Glucose 89 mg/dL (65-110); Potassium 4.4 mmol/L (3.4-5.0); Prothrombin Time 13.6 Seconds (11.1-14.7); Sodium 139 mmol/L (137-145)
[2023-03-20 13:15] LABS: Partial Thromboplastin Time 27.5 SECONDS (22.3-36.8)
[2023-03-20 13:47] VITALS: BP 159/86; PULSE 79; RESP 14; O2SAT 97
== END 2023-03-20 13:47 | disposition home or self-care (01) ==
PROVIDERS: General Practice; Emergency Provider Nurse Practitioner Family; PCP Nurse Practitioner
DX: N30.01 Acute cystitis with hematuria (principal); I10 Essential (primary) hypertension; E78.5 Hyperlipidemia, unspecified; N40.0 Benign prostatic hyperplasia without lower urinary tract symptoms; M10.9 Gout, unspecified; Z87.891 Personal history of nicotine dependence; Z79.82 Long term (current) use of aspirin
CPT/HCPCS: 36415; 80053; 81001; 85025; 85610; 85730; 99283

== ENCOUNTER → 2023-04-01 12:35 | Outpatient (CLI) | payer MEDICARE, SELFPAY ==
--- NOTE | ~2023-04-01 | MR_ITS ---
EXAMINATION: MR abdomen wo/w con DATE: 04/01/2023 13:34 INDICATION: Other specified disorders of kidney and ureter. Right kidney mass. TECHNIQUE: Magnetic resonance imaging (MRI) of the abdomen was performed without and with 20 mL Multi Radha intravenous contrast. COMPARISON: CT abdomen and pelvis 03/16/2023 FINDINGS: There are cysts in the liver measuring up to 5 mm. The gallbladder, spleen, pancreas, and adrenal gla nds are normal. There are cysts in the kidneys measuring up to 3.7 cm on the right. There is a 3.7 cm hemorrhagic cyst in right kidney. There is cortical thinning of left kidney. There are no dilated lo ops of bowel. There are no pathologically enlarged lymph nodes. There is no free intraperitoneal flui d. IMPRESSION: 1. 3.7 cm hemorrhagic cyst in right kidney correlating with the CT abnormality. Reviewed, dictated and finalized at location A. RTISING TRAFFIC MANAGER
== END ==
PROVIDERS: PCP Nurse Practitioner; Visit Provider Nurse Practitioner
DX: N28.89 Other specified disorders of kidney and ureter (principal); N28.1 Cyst of kidney, acquired
CPT/HCPCS: 74183; A9577

== ENCOUNTER 2023-06-22 09:09 | Outpatient (CLI) | payer MEDICARE, SELFPAY ==
[2023-06-22 18:50] LABS: Basophils Absolute Auto 0.1 K/mm3 (0.0-0.1); Basophils Percent Auto 0.6 % (0.2-1.2); Eosinophils Absolute Auto 0.3 K/mm3 (0-0.3); Eosinophils Percent Auto 4.4 % (0-4.4); Hematocrit 48.9 % (42.0-52.0); Hemoglobin 15.3 g/dL (14.0-18.0); Immature Granulocyte Absolute 0.04 K/mm3 (0.00-0.031); Immature Granulocyte Percent A 0.5 % (0-0.5); Lymphocytes Absolute Auto 1.74 K/mm3 (0.9-3.2); Lymphocytes Percent Auto 22.6 % (18.3-44.2); Mean Corpuscular HGB Conc 31.3 g/dl (32-36); Mean Corpuscular Hemoglobin 29.3 pg (26-34); Mean Corpuscular Volume 93.5 fl (80-100); Mean Platelet Volume 10.5 fl (7.4-10.4); Monocytes Absolute Auto 0.6 K/mm3 (0.1-0.6); Monocytes Percent Auto 7.8 % (2.6-8.5); Neutrophils Absolute Auto 4.9 K/mm3 (1.3-6.7); Neutrophils Percent Auto 64.1 % (45.5-73.1); Platelet Count Result 270 k/mm3 (150-375); Red Blood Count 5.23 M/mm3 (4.6-6.20); Red Cell Distribution Width 13.6 % (11.5-14.5); White Blood Count 7.7 K/mm3 (4.5-10.0)
[2023-06-22 20:01] LABS: Thyroid Stimulating Hormone 0.613 uIU/mL (0.465-4.680)
[2023-06-22 21:05] LABS: Alanine Aminotransferase 36 U/L (6-50); Albumin Level 4.4 g/dL (3.5-5.1); Alkaline Phosphatase 85 U/L (38-126); Anion Gap 11 mmol/L (8-16); Aspartate Amino Transferase 68 U/L (17-59); Bilirubin,Total 0.8 mg/dL (0.2-1.3); Blood Urea Nitrogen 19 mg/dL (9-20); Carbon Dioxide 25 mmol/L (22-30); Chloride 105 mmol/L (98-107); Estimated Glomerular Filt Rate > 60; Glucose 83 mg/dL (65-110); Magnesium 2.2 mg/dL (1.6-2.3); Potassium 4.6 mmol/L (3.4-5.0); Sodium 141 mmol/L (137-145)
[2023-06-22 21:32] LABS: Hemoglobin A1C 5.7 % (<5.7)
== END 2023-06-22 09:10 | disposition home or self-care (01) ==
LOC: ANHGOSHLAB 09:11
PROVIDERS: PCP Nurse Practitioner; Visit Provider Nurse Practitioner
DX: M79.10 Myalgia, unspecified site (principal); I10 Essential (primary) hypertension; R53.83 Other fatigue; R73.03 Prediabetes
CPT/HCPCS: 36415; 80053; 83036; 83735; 84443; 85025

== ENCOUNTER 2023-08-04 11:14 | Outpatient (CLI) | payer MEDICARE, SELFPAY ==
--- NOTE | ~2023-08-04 | US_ITS ---
EXAMINATION: US soft tissue groin LT DATE: 08/04/2023 11:37 INDICATION: Left lower quadrant/groin pain post lifting injury TECHNIQUE: Multiple grayscale and Doppler ultrasound images of the left inguinal region of concern we re obtained. COMPARISON: CT dated 03/16/2023 FINDINGS: There is a hypoechoic mass measuring approximately 1.8 x 1.5 cm in maximal dimensions which extends a pproximately 4 cm inferomedially from a region of shadowing along side the right external iliac/commo n femoral arteries and veins which is suspicious for a fat-containing left inguinal hernia. No left i nguinal hernia is evident on the recent prior CT dated 03/16/2023 which did demonstrate a small fat-c ontaining right inguinal hernia. No evident peristalsing bowel within the suspected hernia. IMPRESSION: 1. Possible new small fat-containing left inguinal hernia. Could consider CT for more definitive dete rmination. Reviewed, dictated and finalized at location A. IMPRESSION: 1. Possible new small fat-containing left inguinal hernia. Could consider CT fo r more definitive determination.
== END 2023-08-04 11:15 ==
LOC: GOSHIMG 11:16
PROVIDERS: PCP Nurse Practitioner; Visit Provider Nurse Practitioner
DX: M72.2 Plantar fascial fibromatosis (principal); R10.32 Left lower quadrant pain
CPT/HCPCS: 76882

== ENCOUNTER 2023-08-29 07:50 | Outpatient (CLI) | payer MEDICARE, SELFPAY ==
--- NOTE | 2023-08-29 08:00 | ECG_ITS ---
SEE SCANNED COPY FOR CONFIRMED REPORT MTDD
[2023-08-29 08:51] LABS: Anion Gap 5 mmol/L (4-12); Blood Urea Nitrogen 15 mg/dL (9-20); Calcium 8.9 mg/dL (8.4-10.2); Carbon Dioxide 25 mmol/L (22-30); Chloride 106 mmol/L (98-107); Estimated Glomerular Filt Rate > 60; Glucose 108 mg/dL (65-110); Potassium 4.1 mmol/L (3.4-5.0); Sodium 136 mmol/L (137-145)
== END 2023-08-29 07:51 | disposition home or self-care (01) ==
LOC: ANHSURGERY 07:56
PROVIDERS: Anesthesiology; PCP Nurse Practitioner; Visit Provider Surgery
DX: K40.20 Bilateral inguinal hernia, without obstruction or gangrene, not specified as recurrent (principal); Z79.899 Other long term (current) drug therapy; I10 Essential (primary) hypertension; Z01.818 Encounter for other preprocedural examination
CPT/HCPCS: 36415; 80048; 86850; 86900; 86901; 93005

== ENCOUNTER 2023-09-01 00:56 | Day surgery (SDC) | payer MEDICARE, SELFPAY ==
[2023-08-23 08:48] VITALS: BMI 30.5
--- NOTE | 2023-08-23 09:23 | PC.NURSE ---
PRE-OP INSTRUCTIONS, PLEASE READ CAREFULLY Report to the Outpatient Waiting Room, entrance under the green pavilion located off [facility], at time _1200_ on date _09/01/23_. Planned Procedure Time: _2 PM_. Time changes happen often and if your time is changed the preop area will call you the afternoon before. - You and your visitor will be asked to self-screen and do not enter if you have any COVID symptoms. - A mask is optional within the hospital at this time. Patients may have clear liquids (water, carbonated beverages, clear teas, apple juice) until 3 hours prior to surgery with a maximum of 20 ounces. - No food from midnight until time of surgery Take the following medications with a SIP of water the morning of surgery: _ASPIRIN PER DR. RENEE, & CARVEDILOL_ DO NOT STOP ANY OF YOUR OTHER PRESCRIPTION MEDICATIONS PRIOR TO SURGERY ?EXCEPT THE FOLLOWING Medications to discontinue per ANESTHESIA - _MULTIVITAMIN & SUPPLEMENTS 3 DAYS PRIOR TO SURGERY, Date to take last dose 08/28/23_ Please no make-up, nail wolof, hairspray, perfume, deodorant, or body powder the day of surgery. No jewelry (including any body piercings) or valuables the day of surgery, leave them at home. Please take a shower or bath the night before, or the morning of, surgery with an antibacterial soap. Wear comfortable, loose fitting clothing. - Jewelry must be removed prior to entering the operating room. Rings and piercings that are not removed may be cut off. - The hospital will not accept responsibility for valuables. - Please leave all valuables, including medications, at home the day of surgery. If you are going home after surgery, a licensed haul driver must drive you home. - NO public transportation without another adult if you receive anesthesia. - We recommend that an adult stay with you for 24 hours following discharge. - We also recommend that you do not drive, make important decision, drink alcoholic beverages, or take any drugs that were not prescribed by your health care provider for at least 24 hours after your discharge time. Follow any additional instructions given to you from your surgeon. If you or anyone in your household have experienced Covid symptoms in the past week, please notify your surgeon or the nurse liaison at the phone number below for possible testing. Telephone instructions given to _PATIENT_and asked if any additional questions and then verbalized understanding. Patient advised to call surgeon office or pre surgery nurse liaison [phone] if any additional questions.
[2023-09-01] VITALS (8 sets, daily range): BP systolic 142–164; BP diastolic 77–92; PULSE 82–97; RESP 13–20; TEMP 36.1–36.8; O2SAT 95–99
[2023-09-01] MEDS: ACETAMINOPHEN 500 MG TABLET 1000 MG PO (10:15)
[2023-09-01] MEDS: LACTATED RINGERS 1,000 ML 30 ML IV CONT ×2 (10:20→14:32)
[2023-09-01] MEDS: KETOROLAC 15 MG/ML VIAL (*BKC) IV PUSH (10:25)
--- NOTE | 2023-09-01 11:26 | WPDANESEPPF ---
Anes - Initial Pre Proc Eval Procedure: Operation Date: 09/01/23 12:00 Proposed Procedures p Robotic Assisted Bilateral Inguinal Hernia Repair with Mesh, - Bri Sandhu MD s Open Umbilical Hernia Repair with Mesh - Bri Sandhu MD Date/Time: 09/01/23 11:26 Surgeon: Bri Sandhu MD Pre Op Diagnosis: bilat inguinal hernia, umb hernia (2.5 cm) Patient Data Age: 68 Gender: M Height: 1.87 m Weight: 107 kg Last Vital Signs Temp 96.9 F L 09/01/23 10:00 Pulse 82 09/01/23 10:00 Resp 18 09/01/23 10:00 BP 148/80 H 09/01/23 10:00 Pulse Ox 98 09/01/23 10:00 O2 Del Method Room Air 09/01/23 10:00 Allergies Allergy/AdvReac Type Severity Reaction Status Date / Time meperidine Allergy Severe Anaphylactic Verified 08/23/23 08:43 Shock Sulfa (Sulfonamide Allergy Severe Anaphylactic Verified 08/23/23 08:43 Antibiotics) Shock sulfamethizole Allergy Severe Anaphylactic Verified 08/23/23 08:43 Shock sulfite Allergy Severe Anaphylactic Verified 08/23/23 08:43 Shock tamsulosin [From Flomax] Allergy Severe Anaphylaxis Verified 08/23/23 08:43 trimethoprim Allergy Severe Abdominal Verified 08/23/23 08:43 Pain Iodinated Contrast Media Allergy POSSIBE Verified 08/23/23 08:43 ANAPHYLACTIC SHOCK-STEROID/BENADRYL PRIOR TO TESTING Home Medications Medication Instructions Recorded Confirmed Type aspirin 81 mg tablet,delayed 81 mg PO DAILY 04/24/20 09/01/23 History release (Adult Low Dose Aspirin) carvedilol 6.25 mg tablet 6.25 mg PO Q12H #60 tabs 08/21/20 09/01/23 Rx eplerenone 25 mg tablet 25 mg PO DAILY 11/04/21 09/01/23 History dapagliflozin propanediol 10 mg 10 mg DAILY 03/20/23 09/01/23 History tablet (Farxiga) losartan 100 mg tablet 100 mg PO DAILY 06/22/23 09/01/23 History B-complex with vitamin C 1 cap PO DAILY 08/23/23 09/01/23 History atorvastatin 20 mg tablet 80 mg PO DAILY 08/23/23 09/01/23 History multivitamin 1 tablet DAILY 08/23/23 09/01/23 History Patient hx anesthesia problems: none Family hx anesthesia problems: none Results Review: All pre-operative results and documents have been reviewed as part of the pre-operative evaluation. 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 Family History Family History Father Family history of lymphoma Diabetes mellitus Hypertension Family history of coronary artery disease Gout Mother Hypertension Family history of coronary artery disease Breast cancer Arthritis Social History Social History Social History: caffeine-none Smoking packs per day: 1.5 Smoking cigarettes per day: 30.0 Years smoked: 8 Smoking pack-years: 12.00 Smoking status: Former smoker Tobacco type: cigarettes Second hand tobacco smoke exposure: No Smoking end date: 04/18/94 Alcohol intake: never Substance use: never Substance use type: does not use Do You Feel Safe in your Home?: Yes Lack of Transportation: No Lack of Food: Never True Current Housing: I Have Housing Concerned About Future Housing: No Difficulty Paying Gas/Electric Bills: No Difficulty Paying for Meds: No Currently Unemployed: No Education: Bachelor's Degree Difficulty w/ Childcare or Family Care: No Living arrangements: with family Spiritual care concerns: No Anes - Eval Final PreProcedure Day of Procedure 09/01/23 11:26 Patient weight: ob
--- NOTE | 2023-09-01 12:10 | WPDHPUPDATE1 ---
History and Physical Update Update Date/Time: 09/01/23 12:10 History and Physical has been reviewed, including an updated exam of the patient. There are NO changes in the patient's condition. Risks, benefits, and alternatives have been discussed and questions answered. Patient agrees to proceed with procedure.
[2023-09-01] MEDS: ceFAZolin 2 GM/D5W 50 ML 2 GM/50 ML BAG IVPB (12:25)
[2023-09-01] MEDS: BUPIVACAINE/EPINEPHRINE 0.5% 10 ML VIAL 30 ML INFILTRATE (13:00)
--- NOTE | 2023-09-01 14:30 | W.PM.PROC2 ---
Procedure Note - Detailed Date of Procedure 09/01/23 Pre-op Diagnosis bilateral inguinal hernia, umb hernia (2.5 cm) Post-op Diagnosis Same Procedure Performed robotic assisted bilateral inguinal hernia repair with mesh, open umbilical hernia repair (defect measuring 2.5 cm) with mesh Surgeon Bri Sandhu MD Anesthesia General Indications Pt is a 68 y/o M presenting c few mo h/o bulging, discomfort in L groin. Workup, including imaging, is significant for bilateral inguinal hernia. Patient also with known umbilical hernia measuring 2.5 cm. Findings Bilateral indirect hernia right greater than left, 2.5 cm umbilical hernia Description of Procedure Patient was brought into the operating room and placed in the supine position. After adequate induction of general anesthesia, the patient was prepped and draped in normal sterile fashion. A time-out was then done to verify the patient's identity, as well as the procedure being performed. I began by making a 8 mm incision in the supraumbilical region, a Veress needle was then placed into the peritoneal cavity. CO2 gas was then insufflated and after adequate pneumoperitoneum was achieved, the Veress needle was removed. I then placed an 8 mm trocar through this incision. I then placed the endoscope through this trocar site and under direct visualization placed 2 further 8 mm ports in the right and left mid abdomen. The [employer]i robot was then docked to the 3 trocar sites. I then scrubbed out and went to the robotic console. Upon examining the pelvis, it was noted that the patient had a moderate sized right inguinal hernia. The left side was examined and a small hernia defect was noted. I began by making a preperitoneal flap approximately 6 cm superior to the right sided defect. This flap was carried medially past the umbilical ligaments and laterally to the transversalis. It then began dissection of my medial compartment taking this down to the pubic tubercle. No direct hernia was noted at this point. I then began the lateral dissection taking this down to the transversalis fascia. Once these compartments were achieved, I began dissection around the cord structures. A moderate sized indirect hernia was noted at this point. Using careful dissection, was able to reduce indirect hernia sac off the cord structures. There was also a moderate-sized lipoma of the cord that was reduced. Once this was adequately done, I went ahead and placed a large piece of 3D Max mesh into the abdominal cavity. The mesh was carefully positioned, centering the center of the mesh over the indirect defect. Once this was done, was very satisfied with our repair. Using 3-0 Vicryl sutures, I tacked the mesh medially to El's ligament. Two lateral sutures were placed from the mesh to the transversalis fascia. I then began on the left side by making a preperitoneal flap approximately 6 cm superior to the left sided defect. This flap was carried medially past the umbilical ligaments and laterally to the transversalis. It then began dissection of my medial compartment taking this down to the pubic tubercle. I then began the lateral dissection taking this down to the transversalis fascia. Once these compartments were achieved, I began dissection around the cord structures. A small indirect hernia was noted at this point. Using careful dissection, was able to reduce indirect hernia sac off the cord structures. Once this was adequately done, I went ahead and placed a large piece of 3D Max mesh into the abdominal cavity. The mesh was carefully positioned, centering the center of the mesh over the indirect defect. Once this was done, was very satisfied with our repair. Using 3-0 Vicryl sutures, I tacked the mesh medially to El's ligament. Two lateral sutures were placed from the mesh to the transversalis fascia.I then closed the peritoneal flap bilaterally with running 2.0 V Lock suture x 2. The abdomen was then desufflated, a
[2023-09-01] MEDS: ONDANSETRON INJ 4 MG/2 ML VIAL IV PUSH (15:13)
--- NOTE | 2023-09-01 16:08 | SUR.PHASEII ---
Patient's vitals are stable. He is unhooked from the monitors and waiting for ride.
== END 2023-09-01 16:20 | disposition home or self-care (01) ==
PROVIDERS: PCP Nurse Practitioner; Visit Provider Surgery
PROC: 8E0Y4CZ Robotic Assisted Procedure of Lower Extremity, Percutaneous Endoscopic Approach (ICD-10-PCS; CPT 49650; principal; 2023-09-01 12:00)
PROC: (CPT 49650; 2023-09-01 12:00)
DX: K40.20 Bilateral inguinal hernia, without obstruction or gangrene, not specified as recurrent (principal); K42.9 Umbilical hernia without obstruction or gangrene; I10 Essential (primary) hypertension; E78.5 Hyperlipidemia, unspecified; N40.0 Benign prostatic hyperplasia without lower urinary tract symptoms; M51.36 Other intervertebral disc degeneration, lumbar region; E66.9 Obesity, unspecified; Z68.30 Body mass index [BMI] 30.0-30.9, adult; Z79.82 Long term (current) use of aspirin; Z98.890 Other specified postprocedural states; Z95.1 Presence of aortocoronary bypass graft; Z87.891 Personal history of nicotine dependence; Z80.3 Family history of malignant neoplasm of breast; Z82.49 Family history of ischemic heart disease and other diseases of the circulatory system
CPT/HCPCS: 49650; 49591; S2900; 36415; 80048; 86850; 86900; 86901; 93005; A9270; C1781; J0690; J1100; J1170; J1885; J2250; J2405; J2704; J3010; J7120

== ENCOUNTER 2024-08-13 14:36 | Outpatient (CLI) | payer MEDICARE, SELFPAY ==
--- NOTE | ~2024-08-13 | XR_ITS ---
XR elbow RT 2V Ordering provider: Lourdes Lindo NP History: . M25.529 - Pain in unspecified elbow . Comparison: None. FINDINGS: BONES: Lucency seen in the medial aspect of the radial head which may indicate a fracture. Clinical c orrelation and follow-up advised. JOINT SPACES: Normal. SOFT TISSUES: Unremarkable. No definite joint effusion. IMPRESSION: Possible fracture in the medial aspect of the radial head. Clinical correlation and follow-up advised . Reviewed, dictated and finalized at location A. IMPRESSION: Possible fracture in the medial aspect of the radial head. Clinical correlation and follow-up advised.
== END 2024-08-13 14:37 | disposition home or self-care (01) ==
LOC: GOSHIMG 14:36
PROVIDERS: PCP Nurse Practitioner; Visit Provider Nurse Practitioner
DX: M25.521 Pain in right elbow (principal)
CPT/HCPCS: 73070

== ENCOUNTER 2025-04-01 11:22 | Outpatient (CLI) | payer MEDICARE, SELFPAY ==
[2025-04-01 18:50] LABS: Hematocrit 50.0 % (42.0-52.0); Hemoglobin 16.4 g/dL (14.0-18.0); Immature Granulocyte Percent A 0.3 % (0-0.5); Lymphocytes Absolute Auto 1.99 K/mm3 (0.9-3.2); Mean Corpuscular HGB Conc 32.8 g/dl (32-36); Mean Corpuscular Hemoglobin 29.6 pg (26-34); Mean Corpuscular Volume 90.3 fl (80-100); Nucleated Red Blood Cells Absolute Auto 0.000 K/mm3 (0.0-0.012); Nucleated Red Blood Cells Perc 0.0 % (0.0-0.2); Platelet Count Result 268 k/mm3 (150-375); Red Blood Count 5.54 M/mm3 (4.6-6.20); White Blood Count 8.9 K/mm3 (4.5-10.0)
[2025-04-01 18:59] LABS: Alanine Aminotransferase 55 U/L (6-50); Albumin Level 4.4 g/dL (3.5-5.1); Alkaline Phosphatase 108 U/L (38-126); Anion Gap 6 mmol/L (4-12); Aspartate Amino Transferase 56 U/L (17-59); Bilirubin,Total 1.3 mg/dL (0.2-1.3); Blood Urea Nitrogen 17 mg/dL (9-20); Calcium 9.7 mg/dL (8.4-10.2); Carbon Dioxide 26 mmol/L (22-30); Chloride 106 mmol/L (98-107); Cholesterol 147 mg/dL (0-200); Estimated Glomerular Filt Rate > 60; Glucose 94 mg/dL (65-110); HDL Direct 35 mg/dL; Iron 120 ug/dL (49-181); Potassium 4.6 mmol/L (3.4-5.0); Sodium 138 mmol/L (137-145); Total Protein 8.1 g/dL (6.3-8.2); Triglycerides 134 mg/dL (<150)
[2025-04-01 19:00] LABS: Magnesium 2.2 mg/dL (1.6-2.3)
[2025-04-01 19:13] LABS: Hemoglobin A1C 6.1 % (<5.7); Percent Iron Saturation 31 % (20-50)
[2025-04-01 19:15] LABS: Add Urine Microscopic? NO; Appearance Urine Clear (Clear); Glucose Urine UA 3+ mg/dL (Negative); Leukocyte Esterase Ur Negative LEU/UL (Negative); Nitrate Urine Negative (Negative); Specific Grav Ur 1.032 (1.001-1.035)
[2025-04-01 19:34] LABS: Prostate Specific Antigen 2.3 ng/mL (< OR = 4.0)
[2025-04-01 19:38] LABS: Thyroid Stimulating Hormone 0.647 uIU/mL (0.465-4.680)
[2025-04-01 19:44] LABS: Ferritin 45.10 ng/mL (11.1-264)
[2025-04-01 20:14] LABS: Vitamin B12 736.0 pg/mL (239-931)
[2025-04-02 10:22] LABS: MALB Creatinine Ratio 8.2 mg/g (0-30)
[2025-04-04 01:07] LABS: Free Testosterone (Direct) 5.2 pg/mL (6.6-18.1)
== END 2025-04-01 11:23 | disposition home or self-care (01) ==
PROVIDERS: PCP Nurse Practitioner
DX: R53.83 Other fatigue (principal); E55.9 Vitamin D deficiency, unspecified; R35.0 Frequency of micturition; E78.5 Hyperlipidemia, unspecified; R73.03 Prediabetes; Z12.5 Encounter for screening for malignant neoplasm of prostate; E61.1 Iron deficiency; Z13.9 Encounter for screening, unspecified
CPT/HCPCS: 36415; 80053; 80061; 81003; 82043; 82306; 82607; 82728; 82746; 83036; 83540; 83550; 83735; 84153; 84402; 84403; 84443; 85025; G0103